=== PATIENT | male | born 1995 | race Two or more races ===

== ENCOUNTER 2018-10-30 09:13 | Emergency (ER) | payer SELFPAY ==
[~2018-10-30] VITALS: Ht 175.3 cm; Wt 73.0 kg
[2018-10-30 09:14] VITALS: BP 139/96
[2018-10-30] MEDS ORDERED: LIDOCAINE-MPF 1%, 5ML INFIL ONE (09:30)
[2018-10-30] MEDS ORDERED: DIPH,PERTUSS(ACELL),TET VAC/PF 0.5 ML IM-VACC ONE (09:30)
[2018-10-30] MEDS ORDERED: LIDOCAINE-MPF 1%, 5ML ONE (09:34)
== END 2018-10-30 10:49 | disposition home or self-care (01) ==
LOC: ED 09:55
DX: S01.81XA Laceration without foreign body of other part of head, initial encounter (principal); R10.31 Right lower quadrant pain; W19.XXXA Unspecified fall, initial encounter; Y93.89 Activity, other specified; Y92.89 Other specified places as the place of occurrence of the external cause; Y99.8 Other external cause status
CPT/HCPCS: 12011; 70450; 99284